=== PATIENT | female | born 1975 | race Caucasian/White ===

== ENCOUNTER 2023-10-14 09:28 | Outpatient (CLI) | payer BC | END 2023-10-14 09:29 | disposition home or self-care (01) | LOC: DTY/OP 09:28 | PROVIDERS: ATTEND Specialist | DX: K21.9 Gastro-esophageal reflux disease without esophagitis (principal); E66.01 Morbid (severe) obesity due to excess calories | CPT/HCPCS: 97802 ==

== ENCOUNTER 2023-10-17 07:28 | Outpatient (CLI) | payer BC ==
[2023-10-17] MEDS ORDERED: E-Z-HD 98% W/W 340GM BOT (x-ray ONLY) ONE (07:49)
[2023-10-17] MEDS ORDERED: Barium Sulfate 96% 176 GM BOT (xray ONLY) PO ONE (07:49)
== END 2023-10-17 07:29 | disposition home or self-care (01) ==
LOC: RAD 07:28
PROVIDERS: ATTEND Specialist
DX: E66.01 Morbid (severe) obesity due to excess calories (principal); K21.9 Gastro-esophageal reflux disease without esophagitis
CPT/HCPCS: 74246

== ENCOUNTER 2023-12-06 08:00 | Outpatient (CLI) | payer BC ==
[2023-12-06 08:53] LABS: #Eosinphils 0.1 10x3/uL (0.0-0.5); #Monocytes 0.4 10x3/uL (0.0-1.1); #Neutrophils 2.5 10x3/uL (1.5-8.4); %Basophils 0.7 % (0.0-2.0); %Eosinophils 1.1 % (0.0-6.0); %Lymphocytes 32.3 % (18.0-47.0); %Monocytes 9.6 % (0.0-10.0); %Neutrophils 56.1 % (40.0-75.0); Hematocrit 39.3 % (34.9-44.5); Hemoglobin 13.5 g/dL (12.0-15.5); Mean Corpuscular HGB CONC 34.4 g/dL (32.0-36.0); Mean Corpuscular Hemoglobin 30.7 pg (27.0-33.0); Mean Corpuscular Volume 89.3 fl (81.6-98.3); Mean Platelet Volume 9.4 fl (7.4-10.4); Platelet Count 258 10x3/uL (150-450); RBC Distribution Width 12.4 % (11.5-14.5); White Blood Cell (WBC) Count 4.4 10x3/uL (3.5-10.5)
[2023-12-06 09:28] LABS: ALT (SGPT) 21 U/L (8-55); AST (SGOT) 20 U/L (5-34); Albumin 4.2 g/dL (3.5-5.0); Alkaline Phosphatase 66 U/L (40-110); Anion Gap 12 mmol/L (10-20); BUN (Urea Nitrogen) 22 mg/dL (7.0-18.7); Bilirubin, Total 0.4 mg/dL (0.2-1.2); Calc. Creatinine Clearance 0 mL/min (70-130); Calcium 9.6 mg/dL (7.8-10.44); Carbon Dioxide 26 mmol/L (22-29); Chloride 106 mmol/L (98-107); Estimated GFR 84; Glucose 109 mg/dL (70-105); Protein, Total 7.2 g/dL (6.0-8.3); Sodium 140 mmol/L (136-145)
[2023-12-06 14:12] LABS: Hemoglobin A1c 5.2 % (4.0-6.0)
== END 2023-12-06 08:01 | disposition home or self-care (01) ==
LOC: LABBT 08:00
PROVIDERS: ATTEND Specialist
DX: Z01.818 Encounter for other preprocedural examination (principal); E66.01 Morbid (severe) obesity due to excess calories
CPT/HCPCS: 80053; 83036; 85025; 93005; 93010